=== PATIENT | male | born 1970 | race Caucasian/White ===

== ENCOUNTER 2017-02-23 17:22 | Emergency (ER) | payer OTHER ==
[~2017-02-23] VITALS: Ht 185.4 cm; Wt 74.9 kg
[2017-02-23 17:30] VITALS: TEMP 36.8; Ht 185.4 cm; Wt 74.9 kg
[2017-02-23] MEDS ORDERED: HYDROCODONE/ACETAMOPHEN 5/325MG TAB PO STA (17:52)
--- NOTE | 2017-02-23 18:16 | EMERGENCY ROOM VISIT NOTE ---
ED Visit Note First contact with patient: 17:42 CHIEF COMPLAINT: Left jaw pain HISTORY OF PRESENT ILLNESS: This 46-year-old male patient presented to the emergency department with complaints of left jaw pain that started yesterday and has gotten progressively worse. He states the pain is around his left ear and radiates down the side of the jaw, but does not radiate into the lower jaw, or across the face, or into the neck. The patient believes it is coming from his jaw "joint" and feels this "popping in and out when I open my mouth." The pain comes and goes, he describes it as a sharp stabbing pain, intermittent, exacerbated by palpating the area, 8/10. He denies any pain in his mouth, drainage in his mouth, swelling of his tongue or lips, difficulty swallowing or breathing. Patient states drinking cold liquid and letting it sit in the left side mouth makes the pain feel better. Patient states he took Tylenol last night with minimal relief of the pain. He has not tried any other interventions. He denies fever, neck pain, headache, vision changes, chest pain , SOB, abdominal pain, skin rash, facial swelling. REVIEW OF SYSTEMS: A 10 system review of systems was completed with positives and pertinent negatives listed in the HPI. ALLERGIES: See chart MEDICATIONS: See chart PMH: See chart SOCIAL HISTORY: See chart PHYSICAL EXAM: Vitals are noted on the nurse's note and reviewed by myself. Vital signs stable, afebrile. GENERAL: Positive and cooperative, in no acute distress, but does appear to be in some pain, non-diaphoretic, well-developed well-nourished. Mouth: There are several teeth missing secondary to extraction, especially on the lower jaw. Patient does not have any posterior molars present on the left. The remaining teeth are in poor dentition and carious. There is no tenderness or swelling of the gums on the left side of the mouth, no discharge or exudate noted, no signs of intraoral abscess or swelling. The pharynx and tonsils are without erythema, edema, or exudate with no uvular swelling or deviation. There is no trismus. The airway is patent. There is no facial swelling, cervical or submandibular lymphadenopathy. The patient has significant tenderness to palpation of the left TMJ, but pain is not increased with opening and closing the jaw. No muscle spasm appreciated. The patient appears uncomfortable and in pain. The patient has overall poor dental hygiene. EARS: External auditory canals clear, tympanic membranes pearly lopez without erythema or effusion bilaterally. Patient does have some tenderness with palpation of the tragus and pulling on the pinna of the left ear , no erythema or swelling noted. ED COURSE: I examined the patient. Differential diagnosis includes dental pain/ abscess, otitis externa, otitis media, trigeminal neuralgia, shingles, TMJ syndrome, musculoskeletal pain. There is no evidence of infection within the mouth or on the skin, no rash, no evidence of otitis on exam. Tenderness over the TMJ may indicate a developing TMJ syndrome or musculoskeletal process. Patient was given ice pack to apply to the area of pain and [place], with good improvement. Patient was instructed to return for any worsening symptoms or concerns. Patient was discharged home in stable condition. Current/Historical Medications No Active Prescriptions or Reported Meds Allergies Coded Allergies: No Known Allergies (Unverified Adverse Reaction, Mild, 01/01/03) Vital Signs Date Time Temp Pulse Resp B/P (MAP) Pulse Ox O2 Delivery O2 Flow Rate FiO2 02/23/17 17:30 36.8 71 20 130/91 100 Room Air Medications Administered Medications (Trade) Dose Ordered Sig/Augustus Route Start Time Stop Time Status Last Admin Dose Admin Acetaminophen/ Hydrocodone Bitart ([place] 5/325 Tab) 1 tab NOW STAT PO 02/23/17 17:52 02/23/17 17:54 DC 02/23/17 18:15 1 TAB Departure Information Impression Primary Impression: Left facial pain Dispostion Home / Self-Care Condition GOOD Prescriptions No Active Prescriptions or Reported Meds Referrals No Doctor, Assigned (PCP) Patient Instructions My [facility] Additional Instructions You have been treated in the emergency department today for your left facial pain. You have been given medication to treat this pain that is a narcotic, and it is illegal for you to drive for 6 hours after receiving this medication. Alternate ice and heat to the affected area 20 minutes on, 20 minutes off for the next few days. Ibuprofen 600 mg every 6-8 hours and Tylenol 1000 mg every 8 hours for the next 3 days to treat pain. Follow-up with your PCP on Sunday if you are still having pain. Please return to the ER for any worsening symptoms, including fevers/chills/ feeling ill, swelling or redness of your face or neck, swelling inside your mouth or tongue, drainage inside her mouth, difficulty swallowing or breathing, or if a rash develops on your face.
[2017-02-23 19:23] VITALS: BP 128/90; PULSE 65; O2SAT 98
[2017-02-24] MEDS ORDERED: MTR600X PO (13:43)
== END 2017-02-23 19:23 | disposition home or self-care (01) ==
LOC: C.EDB 17:24 → C.EDD 19:23
DX: R51 Headache (principal)

== ENCOUNTER 2017-02-23 21:45 | Inpatient (IN) | payer OTHER ==
[~2017-02-23] VITALS: Ht 188 cm; Wt 75.7 kg
[2017-02-23] MEDS ORDERED: SODIUM CHLORIDE 0.9% 1000ML 1,000 ML IV STA ×2 (21:59→22:44)
[2017-02-23] MEDS ORDERED: ONDANSETRON INJ 2 MG/ML 2 ML VIAL IV STA (21:59)
[2017-02-23] MEDS ORDERED: PROMETHAZINE HCL INJ 12.5 MG in SODIUM CHLORIDE 0.9% 50ML 50 ML IV STA (22:16)
[2017-02-23] MEDS ORDERED: ONDANSETRON 8 MG/54 ML D5W ONE (22:22)
[2017-02-23 22:28] LABS: BASO % 0.3 %; BASO ABS # 0.04 K/uL (0-0.2); COMPLETE YES; EOS % 0.6 %; HEMATOCRIT 42.8 % (42-52); IG% 0.3 %; LYMPH % 11.8 %; LYMPH ABS # 1.88 K/uL (1.2-3.4); MEAN CELL VOLUME 82.3 fL (80-100); MEAN CORPUSCULAR HEMOGLOBIN 28.7 pg (25-34); MEAN CORPUSCULAR HGB CONC 34.8 g/dl (32-36); MEAN PLATELET VOLUME 10.6 fL (7.4-10.4); PLATELET COUNT 183 K/uL (130-400); WHITE BLOOD COUNT 15.92 K/uL (4.8-10.8)
--- NOTE | 2017-02-23 22:41 | DIAGNOSTIC IMAGING REPORT ---
CHEST ONE VIEW PORTABLE CLINICAL HISTORY: Atypical chest pain. Allergic reaction. COMPARISON STUDY: No previous studies for comparison. FINDINGS: The cardiac and mediastinal contours are normal. There is no evidence of focal pulmonary consolidation. There is no evidence of failure. No pleural effusions are visualized.[ IMPRESSION: No active disease in the chest. Electronically signed by: Quan Lara M.D. 02/23/2017 10:39 PM Dictated Date/Time: 02/23/2017 10:39 PM
[2017-02-23 22:45] LABS: BUN/CREATININE RATIO 4.4 (10-20); CALCIUM 9.3 mg/dl (8.5-10.1); CREATININE 1.3 mg/dl (0.60-1.40); POTASSIUM 3.3 mmol/L (3.5-5.1)
--- NOTE | 2017-02-23 23:21 | EMERGENCY ROOM VISIT NOTE ---
History First contact with patient: 21:52 Chief Complaint: ABDOMINAL PAIN Stated Complaint: ALLERGIC REACTION Nursing Triage Summary: Was discharged from ED for jaw pain, now having acute abdominal/back pain with nausea, vomiting, chills, diaphoresis, "tingly" fingers. History of Present Illness The patient is a 46 year old male who presents to the Emergency Room with complaints of epigastric pain and vomiting that started approximately one hour ago. Patient was seen earlier in this emergency Department for left-sided jaw pain and was treated with [place] for pain. He states he was on his way home when he began to vomit, he thinks this may be from the [place]. Patient's family at bedside and states that he was vomiting earlier today as well, and has been having some abdominal pain since yesterday. Patient also notes some diarrhea this morning, and states it was bloody. He denies fevers, but has chills. He denies any unusual foods, recent travel, or sick contacts. He states he had similar symptoms once before several years ago and thinks it was food poisoning. He denies chest pain, SOB, back pain, dysuria, or rash. Review of Systems A complete 10 point review of systems was reviewed with the patient with pertinent positives and negatives as per history of present illness. All else were negative. Social History Smoking Status: Current Every Day Smoker Current/Historical Medications No Active Prescriptions or Reported Meds Allergies Coded Allergies: No Known Allergies (Unverified , 02/23/17) Physical Exam Vital Signs Date Time Temp Pulse Resp B/P (MAP) Pulse Ox O2 Delivery O2 Flow Rate FiO2 02/24/17 02:10 36.8 57 20 96 02/24/17 02:01 133/82 02/24/17 01:55 57 99 02/24/17 01:41 100 02/24/17 01:40 66 100 02/24/17 01:35 62 90 02/24/17 01:31 133/73 02/24/17 01:20 65 100 02/24/17 01:05 59 22 100 02/24/17 01:01 112/71 02/24/17 00:30 117/75 02/24/17 00:20 60 97 02/24/17 00:17 109/64 02/24/17 00:05 59 97 02/24/17 00:00 109/64 02/23/17 23:50 73 100 02/23/17 23:45 57 25 95 02/23/17 23:39 97 Room Air 02/23/17 23:35 104/61 02/23/17 23:33 02/23/17 23:30 52 100 02/23/17 23:15 62 15 98 02/23/17 23:00 74 100 02/23/17 22:45 61 21 99 02/23/17 22:32 121/78 02/23/17 22:30 60 12 100 02/23/17 22:15 66 19 100 02/23/17 22:00 61 18 117/73 100 02/23/17 21:57 106/62 02/23/17 21:52 36.6 64 29 106/62 100 Room Air Physical Exam CONSTITUTIONAL: Actively vomiting, diaphoretic. Dehydrated. Alert and oriented X 4 with normal affect. HEENT: Normocephalic, atraumatic. Pupils equal, round and reactive to light, EOMI. TMs normal. Pharynx normal. Dry mucus membranes. NECK: Supple, full active range of motion without discomfort. RESPIRATORY: Clear to auscultation bilaterally with no wheezing, crackles, rhonchi or stridor. Equal expansion bilaterally. CARDIOVASCULAR: Regular rate and rhythm with no murmurs, rubs or gallops. Normal peripheral perfusion. No edema. GASTROINTESTINAL: Diffuse tenderness with guarding, not distended. Bowel sounds present in all quadrants. MUSCULOSKELETAL: Full range of motion of all joints without discomfort. INTEGUMENTARY: No rash or other significant dermatologic conditions noted. NEUROLOGIC: Cranial nerves II-XII grossly intact. No focal neurologic deficits noted. Medical Decision & Procedures ER Provider Diagnostic Interpretation: CHEST ONE VIEW PORTABLE CLINICAL HISTORY: Atypical chest pain. Allergic reaction. COMPARISON STUDY: No previous studies for comparison. FINDINGS: The cardiac and mediastinal contours are normal. There is no evidence of focal pulmonary consolidation. There is no evidence of failure. No pleural effusions are visualized. IMPRESSION: No active disease in the chest. Laboratory Results 02/23/17 22:10 Red Blood Count 5.20, Mean Corpuscular Volume 82.3, Mean Corpuscular Hemoglobin 28.7, Mean Corpuscular Hemoglobin Concent 34.8, Mean Platelet Volume 10.6, Neutrophils (%) (Auto) 79.0, Lymphocytes (%) (Auto) 11.8, Monocytes (%) (Auto) 8.0, Eosinophils (%) (Auto) 0.6, Basophils (%) (Auto) 0.3, Neutrophils # (Auto) 12.59, Lymphocytes # (Auto) 1.88, Monocytes # (Auto) 1.28, Eosinophils # (Auto) 0.09, Basophils # (Auto) 0.04 02/23/17 22:10 Test 02/23/17 22:10 02/23/17 22:18 02/23/17 22:23 02/23/17 22:56 White Blood Count 15.92 K/uL (4.8-10.8) Red Blood Count 5.20 M/uL (4.7-6.1) Hemoglobin 14.9 g/dL (14.0-18.0) Hematocrit 42.8 % (42-52) Mean Corpuscular Volume 82.3 fL (80-100) Mean Corpuscular Hemoglobin 28.7 pg (25-34) Mean Corpuscular Hemoglobin Concent 34.8 g/dl (32-36) Platelet Count 183 K/uL (130-400) Mean Platelet Volume 10.6 fL (7.4-10.4) Neutrophils (%) (Auto) 79.0 % Lymphocytes (%) (Auto) 11.8 % Monocytes (%) (Auto) 8.0 % Eosinophils (%) (Auto) 0.6 % Basophils (%) (Auto) 0.3 % Neutrophils # (Auto) 12.59 K/uL (1.4-6.5) Lymphocytes # (Auto) 1.88 K/uL (1.2-3.4) Monocytes # (Auto) 1.28 K/uL (0.11-0.59) Eosinophils # (Auto) 0.09 K/uL (0-0.5) Basophils # (Auto) 0.04 K/uL (0-0.2) RDW Standard Deviation 38.8 fL (36.4-46.3) RDW Coefficient of Variation 12.8 % (11.5-14.5) Immature Granulocyte % (Auto) 0.3 % Immature Granulocyte # (Auto) 0.04 K/uL (0.00-0.02) Activated Partial Thromboplast Time 22.1 SECONDS (21.0-31.0) Partial Thromboplastin Ratio 0.9 Anion Gap 12.0 mmol/L (3-11) Est Creatinine Clear Calc Drug Dose 75.4 ml/min Estimated GFR () 76.9 Estimated GFR (Non- 66.4 BUN/Creatinine Ratio 4.4 (10-20) Calcium Level 9.3 mg/dl (8.5-10.1) Magnesium Level 1.5 mg/dl (1.8-2.4) Total Bilirubin 0.7 mg/dl (0.2-1) Direct Bilirubin 0.2 mg/dl (0-0.2) Aspartate Amino Transf (AST/SGOT) 15 U/L (15-37) Alanine Aminotransferase (ALT/SGPT) 23 U/L (12-78) Alkaline Phosphatase 73 U/L (45-117) Total Protein 7.6 gm/dl (6.4-8.2) Albumin 4.3 gm/dl (3.4-5.0) Lipase 110 U/L (73-393) Thyroid Stimulating Hormone (TSH) 7.800 uIu/ml (0.300-4.500) Bedside Troponin I < 0.030 ng/ml (0-0.045) Bedside Lactic Acid Venous 5.08 mmol/L (0.90-1.70) Lactic Acid Level 4.8 mmol/L (0.4-2.0) Medications Administered Medications (Trade) Dose Ordered Sig/Augustus Route Start Time Stop Time Status Last Admin Dose Admin Sodium Chloride 1,000 ml @ 999 mls/hr Q1H1M STAT IV 02/23/17 21:59 02/23/17 22:59 DC 02/23/17 22:24 999 MLS/HR Promethazine HCl 12.5 mg/Sodium Chloride 50.5 ml @ 204 mls/hr NOW STAT IV 02/23/17 22:16 02/23/17 22:30 DC 02/23/17 23:34 204 MLS/HR Ondansetron HCl (Zofran 8mg Iv) 8 mg STK-MED ONCE .ROUTE 02/23/17 22:22 02/23/17 22:23 DC 02/23/17 22:28 8 MG Sodium Chloride 1,000 ml @ 999 mls/hr Q1H1M STAT IV 02/23/17 22:44 02/23/17 23:44 DC 02/23/17 23:00 999 MLS/HR Morphine Sulfate (MoRPHine SULFATE INJ) 4 mg NOW STAT IV 02/23/17 23:39 02/23/17 23:41 DC 02/23/17 23:47 4 MG Piperacillin Sod/ Tazobactam Sod (Zosyn Iv) 4.5 gm NOW STAT IV 02/24/17 01:01 02/24/17 01:02 DC 02/24/17 01:12 4.5 GM Sodium Chloride 500 ml @ 999 mls/hr Q31M STAT IV 02/24/17 01:03 02/24/17 01:33 DC 02/24/17 01:12 999 MLS/HR Potassium Chloride (Klor-Con M10) 40 meq NOW STAT PO 02/24/17 01:27 02/24/17 01:28 DC 02/24/17 01:39 40 MEQ ECG Indication: abdominal pain, vomiting Rate (beats per minute): 65 Rhythm: normal sinus Findings: no acute ischemic change, no ectopy Medical Decision CC: Patient presenting with complaint of vomiting and abdominal pain Interpretation of Labs: Leukocytosis with left shift, no anemia, hyperglycemia, no other significant electrolyte abnormalities, normal renal function, normal liver enzymes and lipase, significantly elevated lactic acid, negative troponin. Blood cultures pending. Differential Diagnosis: Includes, but not limited to AMI, gastritis, PUD, gastroenteritis, sepsis/bacteremia, SBO, mesenteric adenitis, mesenteric ischemia, diverticulitis, colitis, appendicitis, intraabdominal abscess, among others. Medication Reconciliation: I attest that I have personally reviewed the patient' s current medication list. Vital signs review: I reviewed the patient's vital signs and interpret them as follows: T: Afebrile; BP: Normotensive; HR: WNL; RR: WNL; Pulse Ox: WNL on RA. Blood pressure screening: The patient was found to have normal blood pressure on screening and does not require follow-up for repeat blood pressure check. Summary: Patient was evaluated at bedside, history of physical exam performed. Patient is alert, actively vomiting and in acute pain, diaphoretic. Vital signs are stable. Patient has diffuse abdominal tenderness with guarding. He appears dehydrated clinically. Orders were placed at bedside for labs, UA, cultures, IV fluid bolus, EKG, CXR, CT abd/pelvis to evaluate for abdominal infection, sepsis, and to r/o AMI. Patient discussed with Dr. Berry, who agrees with my assessment and plan. Labs reviewed as above, concerning for significant lactic acidosis with leukocytosis. Troponin is negative. CXR is unremarkable. EKG shows sinus rhythm with no acute ischemic changes. CT abdomen/pelvis pending, but concerning for possible diverticulitis by my read. IV Zosyn ordered for broad coverage. Patient was discussed with Dr. Abdalla, Hospitalist, who agrees to evaluate the patient for admission. Patient reassessed multiple times throughout ED stay, he is improved after morphine, zofran, phenergan, and IV fluids. He was updated on results and plan for admission, he verbalized understanding and is agreeable to this plan. Patient stable at time of admission. Impression Primary Impression: Sepsis Additional Impression: Abdominal pain with vomiting Departure Information Prescriptions No Active Prescriptions or Reported Meds Referrals Mariano Saleem D.O. (PCP) Patient Instructions My [facility] Problem Qualifiers Primary Impression: Sepsis Sepsis type: sepsis due to unspecified organism Qualified Codes: A41.9 - Sepsis, unspecified organism
[2017-02-23] MEDS ORDERED: MoRPHine SULFATE 4 MG/ML 1 ML CARP\\VIAL IV STA (23:39)
[2017-02-24] MEDS ORDERED: OPTIRAY 320 IV PRN (00:30)
[2017-02-24] MEDS ORDERED: PIPERACILLIN/TAZOBACTAM 4.5 GM/100ML D5W IV STA (01:01)
[2017-02-24] MEDS ORDERED: SODIUM CHLORIDE 0.9% 500ML 500 ML IV STA (01:03)
[2017-02-24] MEDS ORDERED: POTASSIUM CHLORIDE 10 MEQ TABCR PO STA (01:27)
[2017-02-24] MEDS ORDERED: NSS + 20MEQ KCL 1000ML 1,000 ML IV SCH (01:30)
[2017-02-24 01:43] LABS: MAGNESIUM 1.5 mg/dl (1.8-2.4); THYROID STIMULATING HORMONE 7.8 uIu/ml (0.300-4.500)
[2017-02-24 01:59] LABS: PARTIAL THROMBOPLASTIN RATIO 0.9
[2017-02-24] MEDS ORDERED: METRONIDAZOLE 500MG / 100ML NSS IV STA (03:56)
[2017-02-24] MEDS ORDERED: TRAMADOL HCL 50 MG TAB PO PRN (04:00)
[2017-02-24] MEDS ORDERED: LORAZEPAM 2 MG/ML 1 ML VIAL IV PRN (04:00)
[2017-02-24] MEDS ORDERED: ONDANSETRON INJ 2 MG/ML 2 ML VIAL IV PRN (04:00)
[2017-02-24] MEDS ORDERED: PROMETHAZINE HCL INJ 12.5 MG in SODIUM CHLORIDE 0.9% 50ML 50 ML IV PRN (04:00)
[2017-02-24] MEDS ORDERED: ACETAMINOPHEN 325 MG TAB PO PRN (04:00)
[2017-02-24] MEDS ORDERED: MoRPHine SULFATE 4 MG/ML 1 ML CARP\\VIAL IV PRN (04:00)
[2017-02-24] MEDS ORDERED: MoRPHine SULFATE 4 MG/ML 1 ML CARP\\VIAL ONE (04:18)
[2017-02-24] MEDS ORDERED: ONDANSETRON INJ 2 MG/ML 2 ML VIAL ONE (04:18)
[2017-02-24 04:52] VITALS: BP 144/97; PULSE 62; TEMP 36.7; O2SAT 99; Ht 188 cm; Wt 75.7 kg
[2017-02-24] MEDS ORDERED: LORAZEPAM INJ 0.5 MG in SYRINGE 0.75 ML IV PRN (05:00)
--- NOTE | 2017-02-24 05:17 | History and Physical ---
History & Physical Date & Time of Service: Feb 24, 2017 at 05:17 Chief Complaint: Abdominal pain, diarrhea Primary Care Physician: Micha Monroe M.D. History of Present Illness Source: patient, hospital records Last night patient seen at the emergency room for oral pain. No significant findings. Pain relieved by Vicodin administration. Patient's subsequently discharged home. Upon arrival at home, patient felt sick. Nausea vomiting achy lower abdominal pain with blood streaked diarrhea, 5 episodes as per patient. Patient also noted chills. No chest pain shortness of breath or cough symptoms. At the emergency room, patient received Zosyn for possible sepsis. 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 Physical Exam Vital Signs Date Time Temp Pulse Resp B/P (MAP) Pulse Ox O2 Delivery O2 Flow Rate FiO2 02/24/17 04:52 36.7 62 20 144/97 99 Room Air 02/24/17 04:05 69 11 100 02/24/17 04:02 123/83 02/24/17 03:50 55 98 02/24/17 03:45 58 97 02/24/17 03:30 57 97 02/24/17 03:15 63 96 02/24/17 03:00 57 96 02/24/17 02:45 56 96 02/24/17 02:31 122/75 02/24/17 02:30 57 98 02/24/17 02:15 59 100 02/24/17 02:10 36.8 57 20 96 02/24/17 02:01 133/82 02/24/17 01:55 57 99 02/24/17 01:41 100 02/24/17 01:40 66 100 02/24/17 01:35 62 90 02/24/17 01:31 133/73 02/24/17 01:20 65 100 02/24/17 01:05 59 22 100 02/24/17 01:01 112/71 02/24/17 00:30 117/75 02/24/17 00:20 60 97 02/24/17 00:17 109/64 02/24/17 00:05 59 97 02/24/17 00:00 109/64 02/23/17 23:50 73 100 02/23/17 23:45 57 25 95 02/23/17 23:39 97 Room Air 02/23/17 23:35 104/61 02/23/17 23:33 02/23/17 23:30 52 100 02/23/17 23:15 62 15 98 02/23/17 23:00 74 100 02/23/17 22:45 61 21 99 02/23/17 22:32 121/78 02/23/17 22:30 60 12 100 02/23/17 22:15 66 19 100 02/23/17 22:00 61 18 117/73 100 02/23/17 21:57 106/62 02/23/17 21:52 36.6 64 29 106/62 100 Room Air General Appearance: + pertinent finding (uncomfortable, looks older than stated age) Head: normocephalic Eyes: + pertinent finding (pink palpebral conjunctivae, dry buccal mucosa) Neck: supple Respiratory/Chest: + decreased breath sounds Cardiovascular: regular rate, rhythm Abdomen/GI: + pertinent finding (hypogastric tenderness) Extremities/Musculoskelatal: non-tender Neurologic/Psych: alert Skin: normal color Diagnostics Laboratory Results Results Past 24 Hours Test 02/23/17 22:10 02/23/17 22:18 02/23/17 22:23 02/23/17 22:56 Range/Units White Blood Count 15.92 4.8-10.8 K/uL Red Blood Count 5.20 4.7-6.1 M/uL Hemoglobin 14.9 14.0-18.0 g/dL Hematocrit 42.8 42-52 % Mean Corpuscular Volume 82.3 80-100 fL Mean Corpuscular Hemoglobin 28.7 25-34 pg Mean Corpuscular Hemoglobin Concent 34.8 32-36 g/dl Platelet Count 183 130-400 K/uL Mean Platelet Volume 10.6 7.4-10.4 fL Neutrophils (%) (Auto) 79.0 % Lymphocytes (%) (Auto) 11.8 % Monocytes (%) (Auto) 8.0 % Eosinophils (%) (Auto) 0.6 % Basophils (%) (Auto) 0.3 % Neutrophils # (Auto) 12.59 1.4-6.5 K/uL Lymphocytes # (Auto) 1.88 1.2-3.4 K/uL Monocytes # (Auto) 1.28 0.11-0.59 K/uL Eosinophils # (Auto) 0.09 0-0.5 K/uL Basophils # (Auto) 0.04 0-0.2 K/uL RDW Standard Deviation 38.8 36.4-46.3 fL RDW Coefficient of Variation 12.8 11.5-14.5 % Immature Granulocyte % (Auto) 0.3 % Immature Granulocyte # (Auto) 0.04 0.00-0.02 K/uL Activated Partial Thromboplast Time 22.1 21.0-31.0 SECONDS Partial Thromboplastin Ratio 0.9 Sodium Level 136 136-145 mmol/L Potassium Level 3.3 3.5-5.1 mmol/L Chloride Level 101 98-107 mmol/L Carbon Dioxide Level 23 21-32 mmol/L Anion Gap 12.0 3-11 mmol/L Blood Urea Nitrogen 6 7-18 mg/dl Creatinine 1.30 0.60-1.40 mg/dl Est Creatinine Clear Calc Drug Dose 75.4 ml/min Estimated GFR () 76.9 Estimated GFR (Non- 66.4 BUN/Creatinine Ratio 4.4 10-20 Random Glucose 173 70-99 mg/dl Calcium Level 9.3 8.5-10.1 mg/dl Magnesium Level 1.5 1.8-2.4 mg/dl Total Bilirubin 0.7 0.2-1 mg/dl Direct Bilirubin 0.2 0-0.2 mg/dl Aspartate Amino Transf (AST/SGOT) 15 15-37 U/L Alanine Aminotransferase (ALT/SGPT) 23 12-78 U/L Alkaline Phosphatase 73 45-117 U/L Total Protein 7.6 6.4-8.2 gm/dl Albumin 4.3 3.4-5.0 gm/dl Lipase 110 73-393 U/L Thyroid Stimulating Hormone (TSH) 7.800 0.300-4.500 uIu/ml Bedside Troponin I < 0.030 0-0.045 ng/ml Bedside Lactic Acid Venous 5.08 0.90-1.70 mmol/L Lactic Acid Level 4.8 0.4-2.0 mmol/L Test 02/24/17 05:10 Range/Units Microbiology Results 02/23/17 Blood Culture, Received Pending 02/23/17 Blood Culture, Received Pending Diagnostic Radiology CT abdomen pelvis initial read no colitis Impression Assessment and Plan AP Sepsis secondary to diarrheal illness (some blood streaking in the stools) CT initial read negative for lauren colitis Rule out C. difficile Ongoing tobacco abuse GMF Stool C. difficile Flagyl for now for presumptive C. difficile in light of sepsis criteria Patient may benefit from PO vancomycin if C. difficile test positive (severe C. difficile criteria of WBC greater than 15 K) IV fluids, follow lactic acid Nicotine patch DVT prophylaxis SCDs Re: LGIB Full code Advanced Directives Existing Living Will: No Existing Power of Shift Superintendent: No VTE Prophylaxis VTE Risk Assessment Done? Y/N: Yes Risk Level: Moderate
[2017-02-24 05:24] LABS: BASO % 0.1 %; BASO ABS # 0.01 K/uL (0-0.2); COMPLETE YES; HEMATOCRIT 39.7 % (42-52); IG% 0.2 %; LYMPH % 7.5 %; LYMPH ABS # 0.94 K/uL (1.2-3.4); MEAN CELL VOLUME 83.1 fL (80-100); MEAN CORPUSCULAR HEMOGLOBIN 28.9 pg (25-34); MEAN CORPUSCULAR HGB CONC 34.8 g/dl (32-36); MEAN PLATELET VOLUME 10.4 fL (7.4-10.4); MONO % 3.3 %; NEUT % 88.9 %; PLATELET COUNT 158 K/uL (130-400); RED BLOOD COUNT 4.78 M/uL (4.7-6.1); WHITE BLOOD COUNT 12.59 K/uL (4.8-10.8)
[2017-02-24] MEDS: NSS + 20MEQ KCL 1000ML 1,000 ML IV SCH ×2 (05:28→11:19)
[2017-02-24 05:42] LABS: BUN/CREATININE RATIO 6.2 (10-20); CALCIUM 8.6 mg/dl (8.5-10.1)
[2017-02-24 07:20] VITALS: BP 107/63; PULSE 71; TEMP 36.7; O2SAT 99
[2017-02-24 08:00] VITALS: O2SAT 99
[2017-02-24] MEDS ORDERED: NICOTINE 21 MG/24 HR TDSY TD SCH (08:00)
[2017-02-24 08:07] LABS: ESTIMATED AVERAGE GLUCOSE 108 mg/dl; HA1C FLAG Normal (Normal)
--- NOTE | 2017-02-24 08:32 | DIAGNOSTIC IMAGING REPORT ---
CT OF THE ABDOMEN AND PELVIS WITH CONTRAST CLINICAL HISTORY: Diffuse abdominal pain, vomiting and elevated lactate. COMPARISON STUDY: None. TECHNIQUE: Following IV administration of 94 mL of [id number]-320, axial images of the abdomen and pelvis were obtained from the lung bases to the proximal femurs. Images were reviewed in the axial, sagittal, and coronal planes. IV contrast was administered without complication. A dose lowering technique was utilized adhering to the principles of ALARA. CT DOSE: 293.70 mGy.cm FINDINGS: Periportal edema is noted. There are no hepatic lesions. The spleen, adrenal glands, kidneys and pancreas are normal. There is no hydronephrosis. No peripancreatic or pericholecystic infiltration is noted. There is no pneumatosis, free air or portal venous gas. Caliber and wall thickness of small and large bowel are normal. The appendix is partially obscured but likely visualized. The appendix is likely normal. Skeletal structures are unremarkable. There is no lymphadenopathy. Major vasculature of the abdomen and pelvis is patent. IMPRESSION: 1. No definite acute process within the abdomen or pelvis. Appendix partially obscured but likely normal. No right lower quadrant infiltration. 2. No bowel obstruction. 3. Periportal edema which is nonspecific but may be related to hydration. Electronically signed by: Baldomero Sofia M.D. 02/24/2017 8:31 AM Dictated Date/Time: 02/24/2017 8:22 AM
[2017-02-24 11:51] LABS: HEMATOCRIT 38.6 % (42-52)
[2017-02-24] MEDS ORDERED: METRONIDAZOLE / NSS 500 MG in PREMIXED NSS 100 ML IV SCH (12:00)
--- NOTE | 2017-02-24 13:32 | Progress Note ---
Internal Med Progress Note Date of Service: Feb 24, 2017. Provider Documentation: SUBJECTIVE: Patient is doing well except for pain in left jaw. No abdominal pain, nausea, vomiting, diarrhea since admitted to floor. No fever, chills. Eager to be discharged OBJECTIVE: Vital Signs-as noted below Exam: General-AAOX3, no distress HEENT- Left jaw tenderness. No pus discharge or infected tooth noted Neck-Supple, NO JVD Lungs-AEBE, no wheezing, rhonchi , rales Heart-S1, S2 normal, no murmurs Abdomen-Soft, non tender, non distended, BS present Extremities-No edema Lab data as noted below. ASSESSMENT & PLAN: NAUSEA/VOMITING - Resolved Patient initially came to ER for left jaw pain, was prescribed [place] x 1 dose and discharged home. Patient threw up on his way home which brought him back to ER. He said he had nausea, vomiting, felt some lip tightness, numbness which resolved within few hours by itself. In ER was found to have elevated lactic acid [address] scan ? preliminary report -colitis ? and thus was admitted. No diarrhea- just 2 stools, not loose yesterday , none since admitted. ? blood streak in stool noted- hemorrhoids ?. -Currently patient is doing well with no symptoms, tolerating PO diet well. -Work up- Lactic acid normalized 1.1 today, No electrolyte abnormalities, CT scan- no acute inflammatory condition noted, C diff pending as no stool collected. LEFT JAW PAIN -No tooth aches, on exam - no pus discharge or tooth infection noted -TM joint issues ? -Need to follow up with dentist -Recommend Ibuprofen 600 mg TID prn and tylenol PRN. Avoid narcotics TOBACCO ABUSE Nicotine patch DVT prophylaxis SCDs Re: LGIB Full code Disposition Eager to be discharged. Ok to discharge home today Recommend follow up with dentist, PCP in 1 week. Vital Signs: Date Time Temp Pulse Resp B/P (MAP) Pulse Ox O2 Delivery O2 Flow Rate FiO2 02/24/17 08:00 99 Room Air 02/24/17 07:20 36.7 71 18 107/63 (78) 99 Room Air 02/24/17 04:52 36.7 62 20 144/97 99 Room Air 02/24/17 04:05 69 11 100 02/24/17 04:02 123/83 02/24/17 03:50 55 98 02/24/17 03:45 58 97 02/24/17 03:30 57 97 02/24/17 03:15 63 96 02/24/17 03:00 57 96 02/24/17 02:45 56 96 02/24/17 02:31 122/75 02/24/17 02:30 57 98 02/24/17 02:15 59 100 02/24/17 02:10 36.8 57 20 96 02/24/17 02:01 133/82 02/24/17 01:55 57 99 02/24/17 01:41 100 02/24/17 01:40 66 100 02/24/17 01:35 62 90 02/24/17 01:31 133/73 02/24/17 01:20 65 100 02/24/17 01:05 59 22 100 02/24/17 01:01 112/71 02/24/17 00:30 117/75 02/24/17 00:20 60 97 02/24/17 00:17 109/64 02/24/17 00:05 59 97 02/24/17 00:00 109/64 02/23/17 23:50 73 100 02/23/17 23:45 57 25 95 02/23/17 23:39 97 Room Air 02/23/17 23:35 104/61 02/23/17 23:33 02/23/17 23:30 52 100 02/23/17 23:15 62 15 98 02/23/17 23:00 74 100 02/23/17 22:45 61 21 99 02/23/17 22:32 121/78 02/23/17 22:30 60 12 100 02/23/17 22:15 66 19 100 02/23/17 22:00 61 18 117/73 100 02/23/17 21:57 106/62 02/23/17 21:52 36.6 64 29 106/62 100 Room Air Lab Results: Results Past 24 Hours Test 02/23/17 22:10 02/23/17 22:18 02/23/17 22:23 02/23/17 22:56 Range/Units White Blood Count 15.92 4.8-10.8 K/uL Red Blood Count 5.20 4.7-6.1 M/uL Hemoglobin 14.9 14.0-18.0 g/dL Hematocrit 42.8 42-52 % Mean Corpuscular Volume 82.3 80-100 fL Mean Corpuscular Hemoglobin 28.7 25-34 pg Mean Corpuscular Hemoglobin Concent 34.8 32-36 g/dl Platelet Count 183 130-400 K/uL Mean Platelet Volume 10.6 7.4-10.4 fL Neutrophils (%) (Auto) 79.0 % Lymphocytes (%) (Auto) 11.8 % Monocytes (%) (Auto) 8.0 % Eosinophils (%) (Auto) 0.6 % Basophils (%) (Auto) 0.3 % Neutrophils # (Auto) 12.59 1.4-6.5 K/uL Lymphocytes # (Auto) 1.88 1.2-3.4 K/uL Monocytes # (Auto) 1.28 0.11-0.59 K/uL Eosinophils # (Auto) 0.09 0-0.5 K/uL Basophils # (Auto) 0.04 0-0.2 K/uL RDW Standard Deviation 38.8 36.4-46.3 fL RDW Coefficient of Variation 12.8 11.5-14.5 % Immature Granulocyte % (Auto) 0.3 % Immature Granulocyte # (Auto) 0.04 0.00-0.02 K/uL Activated Partial Thromboplast Time 22.1 21.0-31.0 SECONDS Partial Thromboplastin Ratio 0.9 Sodium Level 136 136-145 mmol/L Potassium Level 3.3 3.5-5.1 mmol/L Chloride Level 101 98-107 mmol/L Carbon Dioxide Level 23 21-32 mmol/L Anion Gap 12.0 3-11 mmol/L Blood Urea Nitrogen 6 7-18 mg/dl Creatinine 1.30 0.60-1.40 mg/dl Est Creatinine Clear Calc Drug Dose 75.4 ml/min Estimated GFR () 76.9 Estimated GFR (Non- 66.4 BUN/Creatinine Ratio 4.4 10-20 Random Glucose 173 70-99 mg/dl Estimated Average Glucose 108 mg/dl Hemoglobin A1c 5.4 4.5-5.6 % Calcium Level 9.3 8.5-10.1 mg/dl Magnesium Level 1.5 1.8-2.4 mg/dl Total Bilirubin 0.7 0.2-1 mg/dl Direct Bilirubin 0.2 0-0.2 mg/dl Aspartate Amino Transf (AST/SGOT) 15 15-37 U/L Alanine Aminotransferase (ALT/SGPT) 23 12-78 U/L Alkaline Phosphatase 73 45-117 U/L Total Protein 7.6 6.4-8.2 gm/dl Albumin 4.3 3.4-5.0 gm/dl Lipase 110 73-393 U/L Thyroid Stimulating Hormone (TSH) 7.800 0.300-4.500 uIu/ml Bedside Troponin I < 0.030 0-0.045 ng/ml Bedside Lactic Acid Venous 5.08 0.90-1.70 mmol/L Lactic Acid Level 4.8 0.4-2.0 mmol/L Test 02/24/17 05:10 02/24/17 11:43 Range/Units White Blood Count 12.59 4.8-10.8 K/uL Red Blood Count 4.78 4.7-6.1 M/uL Hemoglobin 13.8 13.1 14.0-18.0 g/dL Hematocrit 39.7 38.6 42-52 % Mean Corpuscular Volume 83.1 80-100 fL Mean Corpuscular Hemoglobin 28.9 25-34 pg Mean Corpuscular Hemoglobin Concent 34.8 32-36 g/dl Platelet Count 158 130-400 K/uL Mean Platelet Volume 10.4 7.4-10.4 fL Neutrophils (%) (Auto) 88.9 % Lymphocytes (%) (Auto) 7.5 % Monocytes (%) (Auto) 3.3 % Eosinophils (%) (Auto) 0.0 % Basophils (%) (Auto) 0.1 % Neutrophils # (Auto) 11.19 1.4-6.5 K/uL Lymphocytes # (Auto) 0.94 1.2-3.4 K/uL Monocytes # (Auto) 0.42 0.11-0.59 K/uL Eosinophils # (Auto) 0.00 0-0.5 K/uL Basophils # (Auto) 0.01 0-0.2 K/uL RDW Standard Deviation 39.3 36.4-46.3 fL RDW Coefficient of Variation 13.0 11.5-14.5 % Immature Granulocyte % (Auto) 0.2 % Immature Granulocyte # (Auto) 0.03 0.00-0.02 K/uL Sodium Level 139 136-145 mmol/L Potassium Level 4.0 3.5-5.1 mmol/L Chloride Level 108 98-107 mmol/L Carbon Dioxide Level 24 21-32 mmol/L Anion Gap 7.0 3-11 mmol/L Blood Urea Nitrogen 6 7-18 mg/dl Creatinine 1.00 0.60-1.40 mg/dl Est Creatinine Clear Calc Drug Dose 100.9 ml/min Estimated GFR () 105.6 Estimated GFR (Non- 91.1 BUN/Creatinine Ratio 6.2 10-20 Random Glucose 140 70-99 mg/dl Lactic Acid Level 2.7 1.1 0.4-2.0 mmol/L Calcium Level 8.6 8.5-10.1 mg/dl Microbiology Results 02/23/17 Blood Culture, Received Pending 02/23/17 Blood Culture, Received Pending
[2017-02-24] MEDS ORDERED: MTR600X PO (13:43)
--- NOTE | 2017-02-24 13:59 | Discharge Summary ---
Discharge Summary Date of Service Feb 24, 2017. Discharge Summary Admission Date: Feb 24, 2017 at 03:27 Discharge Date: Feb 24, 2017 Discharge Disposition: Home Principal Diagnosis: 1. Left jaw pain, likely TM joint related 2. Nausea, vomiting, likely secondary to medication- [place] Secondary Diagnoses/Problems: 1. Tobacco abuse disorder Procedures: IVF CT abd/pelvis CXR Pending Studies/Follow-Up: Instructions / Follow-Up Instructions / Follow-Up Medication changes Pain mx- Ibuprofen 600 mg TID as needed for moderate pain Tylenol 650 mg q 6-8 hours as needed for breakthrough pain FOLLOW UP 1. Follow up with Dentist 2. Follow up with PCP in 1 week. We will call you for appt date/time Medication Reconciliation New Medications: Ibuprofen (Ibuprofen) 600 Mg Tab 600 MG PO Q8H for Pain, #20 Admission Information HPI (per Admitting provider): The patient is a 46 year old male who presents to the Emergency Room with complaints of epigastric pain and vomiting that started approximately one hour ago. Patient was seen earlier in this emergency Department for left-sided jaw pain and was treated with [place] for pain. He states he was on his way home when he began to vomit, he thinks this may be from the [place]. Patient's family at bedside and states that he was vomiting earlier today as well, and has been having some abdominal pain since yesterday. Patient also notes some diarrhea this morning, and states it was bloody. He denies fevers, but has chills. He denies any unusual foods, recent travel, or sick contacts. He states he had similar symptoms once before several years ago and thinks it was food poisoning. He denies chest pain, SOB, back pain, dysuria, or rash. Hospital Course NAUSEA/VOMITING - Resolved Patient initially came to ER for left jaw pain, was prescribed [place] x 1 dose and discharged home. Patient threw up on his way home which brought him back to ER. He said he had nausea, vomiting, felt some lip tightness, numbness which resolved within few hours by itself. In ER was found to have elevated lactic acid [address] scan ? preliminary report -colitis ? and thus was admitted. No diarrhea- just 2 stools, not loose yesterday , none since admitted. ? blood streak in stool noted- hemorrhoids ?. -Likely reaction to [place] -Currently patient is doing well with no symptoms, tolerating PO diet well. -Work up- Lactic acid normalized 1.1 today, No electrolyte abnormalities, CT scan- no acute inflammatory condition noted, C diff pending as no stool collected. LEFT JAW PAIN -No tooth aches, on exam - no pus discharge or tooth infection noted -TM joint issues ? -Need to follow up with dentist -Recommend Ibuprofen 600 mg TID prn and tylenol PRN. Avoid narcotics TOBACCO ABUSE Nicotine patch DVT prophylaxis SCDs Re: LGIB Full code Disposition Eager to be discharged. Ok to discharge home today Recommend follow up with dentist, PCP in 1 week. Total time spent on discharge = 25 minutes This includes examination of the patient, discharge planning, medication reconciliation, and communication with other providers. Discharge Instructions Discharge Discharge Diagnosis / Problem: 1. Nausea, vomiting likely reaction to [place] 2. Left jaw pain Discharge Goals Goal(s): Therapeutic intervention Activity Recommendations Activity Limitations: resume your previous activity . Instructions / Follow-Up Instructions / Follow-Up Medication changes Pain mx- Ibuprofen 600 mg TID as needed for moderate pain Tylenol 650 mg q 6-8 hours as needed for breakthrough pain FOLLOW UP 1. Follow up with Dentist 2. Follow up with PCP in 1 week. We will call you for appt date/time Current Hospital Diet Patient's current hospital diet: Clear Liquid Diet Discharge Diet Recommended Diet: Regular Diet (soft diet) Pending Studies Studies pending at discharge: no Laboratory Results Hemoglobin A1c Test 02/23/17 22:10 Range/Units Estimated Average Glucose 108 mg/dl Hemoglobin A1c 5.4 4.5-5.6 % Medical Emergencies . Who to Call and When: Medical Emergencies: If at any time you feel your situation is an emergency, please call 911 immediately. . Non-Emergent Contact Non-Emergency issues call your: Primary Care Provider Call Non-Emergent contact if: temperature is above 101.5 . . "Provider Documentation" section prepared by Makenna Mina. . VTE Core Measure Inpt VTE Proph given/why not?: Todd Delgado, SCD's
[2017-02-24 14:11] VITALS: BP 107/63; PULSE 71; TEMP 36.7; O2SAT 99
== END 2017-02-24 14:02 | disposition home or self-care (01) | DRG 159 ==
LOC: EDBD 21:45 → C.EDC 21:48 → C.4E 02-24 03:27 → ENRESERV 02-24 03:42
PROVIDERS: ADMIT Internal Medicine; ATTEND Internal Medicine
DX: R68.84 Jaw pain (principal); R11.2 Nausea with vomiting, unspecified; F17.200 Nicotine dependence, unspecified, uncomplicated; R19.7 Diarrhea, unspecified